=== PATIENT | female | born 1950 | race Caucasian/White ===

== ENCOUNTER 2018-09-13 02:42 | Emergency (ER) | payer MEDICARE ==
[~2018-09-13] VITALS: Ht 162.6 cm; Wt 81.7 kg
[2018-09-13] MEDS ORDERED: OZEMPIC0.25 MG/0. SUBQ (02:56)
[2018-09-13] MEDS ORDERED: SYNTHROID50 MCG PO (02:56)
[2018-09-13] MEDS ORDERED: METFORMIN HCL500 MG PO (02:57)
[2018-09-13] MEDS ORDERED: VASCEPA0.5 GM PO (02:58)
[2018-09-13] MEDS ORDERED: FUROSEMIDE 20 M20 M1 PO (02:58)
[2018-09-13] MEDS ORDERED: LOTRISONE CREAM15 GM TOP (03:44)
[2018-09-13 04:06] VITALS: BP 142/61
== END 2018-09-13 04:09 | disposition home or self-care (01) ==
LOC: M.ERS 02:42
DX: L30.9 Dermatitis, unspecified (principal); E11.9 Type 2 diabetes mellitus without complications; E03.9 Hypothyroidism, unspecified; E78.00 Pure hypercholesterolemia, unspecified; I10 Essential (primary) hypertension; E66.9 Obesity, unspecified; Z68.30 Body mass index [BMI] 30.0-30.9, adult; Z88.8 Allergy status to other drugs, medicaments and biological substances; Z90.49 Acquired absence of other specified parts of digestive tract; Z85.3 Personal history of malignant neoplasm of breast